=== PATIENT | male | born 1945 | race Caucasian/White ===

== ENCOUNTER → 2020-11-07 | Outpatient (CLI) | payer MEDICARE, OTHER ==
[~2020-11-07] MED LIST: ATOR10TA9 PO
== END | disposition home or self-care (01) ==
LOC: STAR 12:50
PROVIDERS: ATTEND Orthopaedic Surgery
DX: Z20.822 Contact with and (suspected) exposure to COVID-19 (principal)
CPT/HCPCS: U0003

== ENCOUNTER 2020-11-13 05:23 | Day surgery (SDC) | payer MEDICARE, OTHER ==
[~2020-11-13] VITALS: Ht 175.3 cm; Wt 90.7 kg
[2020-11-13 06:04] VITALS: BP 136/81
[2020-11-13] MEDS ORDERED: CHLORHEXIDINE 15 ML UDC PO ONE (06:30)
[2020-11-13] MEDS ORDERED: LACTATED RINGERS 1,000 ML IV SCH (06:30)
[2020-11-13] MEDS ORDERED: BUPIVACAINE/PF-EPI 0.25% 1:200K ONE (06:33)
[2020-11-13] MEDS ORDERED: EPINEPHRINE 1 MG/ML, 1ML ONE (06:34)
[2020-11-13] MEDS ORDERED: FENTANYL PF 100 MCG/2ML ONE (07:22)
[2020-11-13] MEDS ORDERED: BUPIVACAINE/PF-EPI 0.25% 1:200K INFIL ONE (08:06)
[2020-11-13] MEDS ORDERED: PROPOFOL 10 MG/ML, 20ML ONE (08:27)
[2020-11-13] MEDS ORDERED: DEXAMETHASONE 4 MG/ML, 1ML ONE (08:27)
[2020-11-13] MEDS ORDERED: ONDANSETRON 2MG/ML, 2ML ONE (08:27)
[2020-11-13] MEDS ORDERED: CEFAZOLIN 1,000 MG ONE (08:27)
[2020-11-13] MEDS ORDERED: OXYcodone 5 MG/5 ML ORAL.SOL UDC ONE (08:50)
[2020-11-13] MEDS ORDERED: ACETAMINOPHEN 650 MG/20.3 ML UDC ONE (08:51)
[2020-11-13] MEDS ORDERED: HYDROmorphone 1 MG/ML, 1ML INJ IVPush PRN (09:00)
[2020-11-13] MEDS ORDERED: ONDANSETRON 2MG/ML, 2ML IVPush PRN (09:00)
[2020-11-13] MEDS ORDERED: FENTANYL PF 100 MCG/2ML IV PRN (09:00)
[2020-11-13] MEDS ORDERED: OXYcodone 5 MG/5 ML ORAL.SOL UDC PO PRN (09:00)
[2020-11-13] MEDS ORDERED: LORazepam 2 MG/ML, 1ML IVPush PRN (09:00)
[2020-11-13] MEDS ORDERED: METHOCARBAMOL 1,000 MG in DEXTROSE 5% 100 ML IV PRN (09:00)
[2020-11-13] MEDS ORDERED: KETOROLAC 30 MG/1 ML IVPush PRN (09:00)
[2020-11-13] MEDS ORDERED: LABETALOL 5MG/ML, 20ML IV PRN (09:00)
[2020-11-13] MEDS ORDERED: PROMETHAZINE 25 MG/ML, 1ML IVPush PRN (09:00)
[2020-11-13] MEDS ORDERED: ACETAMINOPHEN 325 MG TABLET PO PRN (09:00)
[2020-11-13] MEDS ORDERED: hydrALAzine 20 MG/ML, 1ML IV PRN (09:00)
[2020-11-13] MEDS ORDERED: PROMETHAZINE 25 MG SUPP PR PRN (09:00)
== END 2020-11-13 10:32 | disposition home or self-care (01) ==
LOC: OR 05:23 → OUT 10:32
PROVIDERS: ATTEND Orthopaedic Surgery
DX: S83.282A Other tear of lateral meniscus, current injury, left knee, initial encounter (principal); M22.42 Chondromalacia patellae, left knee; M17.12 Unilateral primary osteoarthritis, left knee; E78.5 Hyperlipidemia, unspecified; Z79.899 Other long term (current) drug therapy; W18.49XA Other slipping, tripping and stumbling without falling, initial encounter; Y93.89 Activity, other specified; Y92.89 Other specified places as the place of occurrence of the external cause; Y99.8 Other external cause status
CPT/HCPCS: 29881; 93005; J0690; J1100; J2405; J2704; J3010; J7120; J0171